=== PATIENT | female | born 1980 | race African-American/Black ===

== ENCOUNTER → 2020-09-24 09:10 | Outpatient (CLI) | payer OTHER, SELFPAY ==
--- NOTE | 2020-09-24 09:18 | DI.MRI.S_ITS ---
PROCEDURE: MR SHOULDER RT WO/W CON INDICATIONS: Villonodular synovitis (pigmented), unspecified si TECHNIQUE: Noncontrast oblique coronal T1 spin echo and T2 fast spin echo with fat saturation, oblique sagittal T1 spin echo and T2 fast spin echo with fat saturation, axial T1 spin echo and T2 fast spin echo with fat saturation through the shoulder. Post-contrast oblique coronal, oblique sagittal, and axial T1 spin echo with fat saturation through the shoulder. COMPARISON: None. FINDINGS: Image quality: Excellent. Rotator cuff: There is distal supraspinatus and infraspinatus tendinosis. Distal subscapularis tendinosis is also seen. No evidence of rotator cuff tendon tear. Sagittal images demonsterate no significant muscle atrophy. Bones and bursae: No suspicious bone marrow enhancement. No bone marrow contusions or fractures. No acromioclavicular joint degeneration. The acromion demonstrates conventional anatomy, without an os acromiale. There is moderate amount of glenohumeral joint fluid and small amount of subacromial subdeltoid bursal fluid. Mild synovial thickening and enhancement is seen. Ill-defined hypointense signal intensity structures are noted within dependent portion of glenohumeral joint anterior and inferior to the glenoid without evidence of contrast enhancement. Susceptibility artifacts are noted in anterior and lateral shoulder soft tissue suggest clinical correlation. Capsule and soft tissues: No suspicious soft tissue enhancement. In the absence of intra-articular contrast, the labrum and glenohumeral ligaments appear intact. The long head of the biceps tendon is not well visualized intra-articularly. The rotator interval appears normal, without fibrosis. The coracohumeral ligament is normal in thickness. IMPRESSION: 1. Rotator cuff tendinosis. No evidence of rotator cuff tendon tear. No muscle atrophy or abnormal intramuscular enhancement. 2. Moderate amount of glenohumeral joint fluid with thickened synovial lining suggestive of synovitis. Ill-defined T2 hypointense signal structures seen within dependent portion of the joint anterior and inferior to the glenoid concerning for developing villonodular synovitis. No discrete well-defined right body is identified at this time. 3. No marrow edema. No fracture or dislocation. No evidence of focal labral tear. 4. Postsurgical changes in anterior and lateral aspect of shoulder soft tissue with nonvisualization of proximal intra-articular portion of long head of biceps tendon likely represent prior bicipital tendon repair suggest clinical correlation. Dictated by: Jonathon Paez M.D. on 09/24/2020 at 10:31 Approved by: Jonathon Paez M.D. on 09/24/2020 at 11:00
== END ==
PROVIDERS: Referring Provider Student in an Organized Health Care Education/Training Program; Visit Provider Student in an Organized Health Care Education/Training Program
DX: M12.20 Villonodular synovitis (pigmented), unspecified site (principal)
CPT/HCPCS: 73223